=== PATIENT | female | born 1935 | race Caucasian/White ===

== ENCOUNTER → 2016-10-22 | Outpatient (CLI) | payer MEDICARE, OTHER ==
[2016-10-22 07:10] LABS: CALCIUM LEVEL 8.7 MG/DL (8.8-10.2); CREATININE FOR GFR 1.24 MG/DL (0.55-1.02); GLOMERULAR FILTRATION RATE 44.4 (>39); POTASSIUM SERUM 4.3 MEQ/L (3.5-5.1)
--- NOTE | 2016-10-22 08:54 | ECGEPIP ---
Stationary ECG Study [facility] Test Date: 2016-10-22 Pat Name: BANDAR WEBER Department: Room: - Gender: F [employer] Lab Technician: ANGELI : [id number] Requested By: CURT Byrd Order Number: [id number] Reading MD: Shari Payton Measurements Intervals [place] Rate: 73 P: 48 OR: 110 QRS: 72 QRSD: 90 T: 55 QT: 380 QTc: 420 Interpretive Statements SINUS RHYTHM WITH SHORT OR INTERVAL U WAVES NOTED MINIMAL ST DEPRESSION NO PRIOR Electronically Signed On 10-22-2016 8:54:19 EST by Shari Payton
== END ==
LOC: M LAB 06:17
PROVIDERS: ATTEND Ophthalmology
DX: H25.11 Age-related nuclear cataract, right eye (principal); Z01.818 Encounter for other preprocedural examination

== ENCOUNTER 2016-11-07 09:30 | Day surgery (SDC) | payer MEDICARE, OTHER ==
--- NOTE | 2016-11-05 06:04 | CR ---
PREOPERATIVE EVALUATION CONSULTATION DATE OF CONSULTATION: 10/23/2016 REQUESTING SURGEON: Dr. Jeff Quevedo CONSULTING PHYSICIAN: Dr. Dileep Barragan PLANNED SURGERY: Right cataract extraction. HISTORY OF PRESENT ILLNESS: A very pleasant 81-year-old patient presents today for preoperative evaluation consultation. Patient is looking forward to right cataract surgery to be completed on 11/07/2016, at [facility]. Patient and I discussed preoperative risks. She notes she exerts herself over three METS on a regular basis, including walking up the stairs without issues. She denies any significant cardiac symptoms. No chest pain, shortness of breath. She had no difficulties with anesthesia during the left cataract extraction. She denies any snoring or other significant perioperative risks. Other medical issues include osteoporosis with vitamin D deficiency, renal calculi for which she is on Bactrim. I have intermittent elevations of her blood pressure which have proven to be associated with anxiety and on recheck have been controlled. She does see her urologist regarding her renal calculi. Although it is noted that there was no PATs, the patient did have platelet function and evaluation which appears normal. BMP was also completed and noted a creatinine of 1.24 giving her a GFR of 44. Other electrolytes were generally appropriate. Patient as noted has been hesitant to have any other testing, but does understand the risks of this. Presently, she has no new symptoms or issues of concern. PAST MEDICAL HISTORY: 1. Osteoporosis, status post treatment with Fosamax for many years. 2. Renal calculi, seeing Dr. Riley through urology and has been maintained on Bactrim. 3. Fasting glucose intolerance. 4. Vitamin D deficiency. 5. Chronic kidney disease stage 3. 6. Hyperlipidemia -- has declined statins a number of times. PAST SURGICAL HISTORY: 1. Left cataract extraction, Dr. García. 2. Colonoscopies with Dr. Riley and Dr. Patton. 3. Lithotripsy times two in [place] with Dr. Riley for renal calculi. 4. Breast biopsies in the 1960s, benign. ALLERGIES: SIMVASTATIN is listed as an allergy, but likely due to myalgias only. MEDICATIONS: - Drisdol 50,000 units taken three out of four weeks a month - Bactrim single-strength taken daily - Refresh eye drops as needed FAMILY HISTORY: Father in his 80s of unknown cause. Mother of coronary artery disease; she was a heavy smoker and had respiratory issues. She had a brother who is alive in his early 80s had coronary artery bypass graft (CABG). A second brother in his late 70s had a kidney removed. Had a sister who had a gynecological cancer and is in her early 70s. She had a son who of complications of gastrointestinal (GI) issues; his name was Larry. SOCIAL HISTORY: The patient lives alone. She is . Her only son Larry in 2012 at the age of 47. She is a retired contract administrative assistant from [employer] She is a former smoker, smoked socially for about 10 years quit in 1969. She has an occasional alcohol beverage only. REVIEW OF SYSTEMS: As per history of present illness (HPI), otherwise, 10-system review is negative. PHYSICAL EXAMINATION: VITAL SIGNS: Initial blood pressure 152/74, recheck 135/70, pulse 84, respiratory rate 16, weight of 108 pounds, height of 5 feet 4 inches, body mass index (BMI) of 18.5. Patient appears at baseline health, well-developed, nontoxic, alert, and oriented times three, somewhat anxious about the surgery, but otherwise well-composed, well-spoken. HEENT: Pupils equal, round, and react to light and accommodation. Extraocular motions appear intact. No lesions to lids or conjunctiva. Oral cavity and oropharynx are benign. Nares are benign as is external ear. NECK: Supple, no lymphadenopathy or thyromegaly. HEART: Regular rate and rhythm, S1, S2, no murmurs appreciated. LUNGS: Clear to auscultation bilaterally. No rales, rhonchi, or wheezes. ABDOMEN: Soft, nontender, nondistended. EXTREMITIES: No cyanosis, clubbing, or edema. NEUROLOGIC: Nonfocal. Her memory is intact. She has appropriate attention and speech. Strength in all four limbs is symmetrical. ASSESSMENT AND PLAN: 1. Preoperative evaluation consultation. At this point in time, the patient appears optimized for surgical intervention. Although at the time of seeing the patient, preoperative evaluation testing was not available. Subsequently, platelet function testing was checked and appears to be normal. Her BMP--shows some increase in her creatinine; however, she is on Bactrim, which can artificially raise this. EKG showed sinus rhythm with minor changes, could just be short IN interval. UA is question of SBT changes but no significant abnormalities. With the patient's preoperative testing, and no clinical predictors of significant increased risk for cardiovascular events, the patient is optimized for surgical intervention. If she does have any perioperative issues, please feel free to call me on my cell and I would be happy to address those. However, risk is low to intermediate for a relatively low risk procedure. 2. Right eye cataract. Patient looks forward to improved vision. 3. History of renal calculi--appears to be doing well following with Dr. Riley who is on Bactrim due to this, but is not having any symptoms. She is monitored. 4. Anxiety. Has had significant issues, generally stable. Looks forward to surgical intervention. 5. Vitamin D deficiency. Patient and I discussed the importance of taking her Drisdol regularly. We will followup. 6. Osteoporosis. Patient has significant osteoporosis based on July 2016 DEXA scan. She is not interested in further treatment having been on Fosamax. She does understand the risks. 7. Chronic kidney disease stage 3. Again, this is being monitored. Will have her avoid nephrotoxins. She understands this and follows up with Dr. Riley. 8. Ongoing care. I am going to see the patient as scheduled with labs. However, if she has any preoperative issues, she will let me know. Her sister, Terrie Hernandez, will be bringing the patient to her appointment and caring for her postoperatively. If there are new issues or concerns sooner, they will let me know.
[~2016-11-07 09:30] MED LIST: ACETAMINOPHEN 325 MG TAB PO PRN; ACETYLCHOLINE OPHTH SOLN 1% 2ML As Ordered ONE; BALANCED SALT IRRIGATION SOLUTION 500ML BAG (FOR OR EYE MACHINE) As Ordered ONE; CEFUROXIME 1MG/0.1ML INTRACAMERAL INJ As Ordered ONE; HEALON DUET (HEALON 10MG/ML 0.55ML & HEALON ENDOCOAT 30MG/ML 0.85ML) As Ordered ONE; LIDOCAINE 0.75%/EPINEPHRINE 0.025% IN BSS 1ML SYR INTRACAMERAL (OR ONLY) As Ordered ONE; OFLOXACIN 0.3 % (OCUFLOX) OPTH SOL 5ML OD ONE; PHENYLEPHRINE 2.5% OPHTH SOL 2ML OD ONE; POVIDONE-IODINE 5% OPHTH PREP SOL 30ML As Ordered ONE; PROPARACAINE 0.5% OPHTH SOL 15ML OD ONE; TOBRADEX OPHTH OINT 3.5 GM As Ordered ONE; TROPICAMIDE 1% OPHTH SOLN 2 ML OD ONE
[2016-11-07] MEDS ORDERED: OFLOXACIN 0.3 % (OCUFLOX) OPTH SOL 5ML As Ordered ONE (10:03)
[2016-11-07] MEDS ORDERED: PHENYLEPHRINE 2.5% OPHTH SOL 2ML As Ordered ONE (10:03)
[2016-11-07] MEDS ORDERED: CYCLOPENTOLATE 2% OPHTH SOLN As Ordered ONE (10:03)
[2016-11-07] MEDS ORDERED: TROPICAMIDE 1% OPHTH SOLN 2 ML As Ordered ONE (10:03)
[2016-11-07] MEDS ORDERED: DRIS50002 PO (10:25)
[2016-11-07] MEDS ORDERED: BACT400T PO (10:25)
[2016-11-07] MEDS ORDERED: MIDAZOLAM INJ 2 MG/2 ML VIAL (J2250) As Ordered ONE (10:34)
[2016-11-07] MEDS ORDERED: TRIMETHOBENZAMIDE 300 MG CAP PO PRN (12:00)
[2016-11-07 12:15] VITALS: BP 149/70
--- NOTE | 2016-11-07 17:45 | RO ---
DATE OF PROCEDURE: 11/07/2016 PREOPERATIVE DIAGNOSIS: Visually significant nuclear sclerotic cataract right eye. POSTOPERATIVE DIAGNOSIS: Visually significant nuclear sclerotic cataract right eye. PROCEDURE: Cataract extraction with use of phacoemulsification and placement of intraocular lens Lion [id number] 22.5 diopters, right eye. SURGEON: Jeff Quevedo DO RETAIL SALES ADVISOR: ANESTHESIA: Local with monitored anesthesia care (MAC). COMPLICATIONS: None. POSTOPERATIVE CONDITION: Stable. INDICATION FOR SURGERY: Blurred vision right eye affecting patient's activities of daily living. DESCRIPTION OF PROCEDURE: The patient was seen in the preoperative area and properly identified. The correct operative eye was identified and marked. Attention was turned to that eye. The patient received topical antibiotics in the preoperative area. The patient then received topical dilating drops consisting of tropicamide and phenylephrine. The patient was then transferred to the operating room. The correct side was reidentified. The patient received topical anesthetics and antibiotics on the surface of the eye. The eye was prepped and draped in a sterile fashion. The upper and lower eyelids were isolated with Tegaderm tape, and the lids were held open with an adjustable speculum. Using a sideport blade, a paracentesis incision was made. Intraocular preservative-free lidocaine was then injected into the anterior chamber. Viscoelastic was then injected into the anterior chamber through the paracentesis. Using a 2.65 mm sharp-tipped keratome, the anterior chamber was entered via a temporal clear corneal incision. A continuous curvilinear capsulorrhexis was created with the aid of a 26-gauge cystotome and Utrata forceps. Hydrodissection was performed with balanced salt solution (BSS) on a blunt cannula until the nucleus was freely mobile. The crystalline lens was phacoemulsified and aspirated. Additional cohesive viscoelastic was placed into the capsular bag to deepen it. An Lion [id number] 22.5 diopter lens was placed into the capsular bag and confirmed by visualizing the continuous curvilinear capsulorrhexis. Additional irrigation and aspiration was used to remove cortical material and remaining viscoelastic. The clear corneal incision was hydrated with BSS on a blunt cannula. The lens was well positioned. The incisions were then tested for leaks and found to be negative. The eye was then palpated for appropriate pressure and adjusted accordingly with BSS. Cefuroxime, 0.5cc was injected into the anterior chamber. The eyelid speculum was then carefully removed. Tobradex ointment was placed in the eye. An eye patch and shield were then secured over the eye. The patient tolerated the procedure well and was discharged to the recovery unit in a stable condition. DREA
== END 2016-11-07 12:15 | disposition home or self-care (01) ==
LOC: M SDC 09:30
PROVIDERS: ATTEND Ophthalmology
DX: H25.21 Age-related cataract, morgagnian type, right eye (principal); M81.0 Age-related osteoporosis without current pathological fracture; N20.0 Calculus of kidney; E78.5 Hyperlipidemia, unspecified; F41.9 Anxiety disorder, unspecified; E55.9 Vitamin D deficiency, unspecified; N18.3 Chronic kidney disease, stage 3 (moderate); Z88.8 Allergy status to other drugs, medicaments and biological substances; Z79.899 Other long term (current) drug therapy
CPT/HCPCS: 66984; J2250; V2632

== ENCOUNTER → 2017-05-29 | Outpatient (CLI) | payer MEDICARE ==
[~2017-05-29] MED LIST changes: -ACETAMINOPHEN 325 MG TAB PO PRN; -ACETYLCHOLINE OPHTH SOLN 1% 2ML As Ordered ONE; +BACT400T PO; -BALANCED SALT IRRIGATION SOLUTION 500ML BAG (FOR OR EYE MACHINE) As Ordered ONE; -CEFUROXIME 1MG/0.1ML INTRACAMERAL INJ As Ordered ONE; +DRIS50002 PO; -HEALON DUET (HEALON 10MG/ML 0.55ML & HEALON ENDOCOAT 30MG/ML 0.85ML) As Ordered ONE; -LIDOCAINE 0.75%/EPINEPHRINE 0.025% IN BSS 1ML SYR INTRACAMERAL (OR ONLY) As Ordered ONE; -OFLOXACIN 0.3 % (OCUFLOX) OPTH SOL 5ML OD ONE; -PHENYLEPHRINE 2.5% OPHTH SOL 2ML OD ONE; -POVIDONE-IODINE 5% OPHTH PREP SOL 30ML As Ordered ONE; -PROPARACAINE 0.5% OPHTH SOL 15ML OD ONE; -TOBRADEX OPHTH OINT 3.5 GM As Ordered ONE; -TROPICAMIDE 1% OPHTH SOLN 2 ML OD ONE
[2017-05-29 12:31] LABS: FOLATE 9.2 NG/ML (>5.4)
[2017-05-29 12:41] LABS: FREE T4 1.16 NG/DL (0.76-1.46)
== END ==
LOC: M LAB 10:34
PROVIDERS: ATTEND Psychiatry & Neurology Neurology
DX: G31.84 Mild cognitive impairment of uncertain or unknown etiology (principal); G30.1 Alzheimer's disease with late onset; E03.9 Hypothyroidism, unspecified

== ENCOUNTER → 2018-08-05 | Outpatient (REF) | payer MEDICARE ==
[~2018-08-05] MED LIST changes: -DRIS50002 PO; +DRIS50003 PO
== END ==
LOC: M LAB REF 12:34
PROVIDERS: ATTEND Nurse Practitioner Family
DX: N39.0 Urinary tract infection, site not specified (principal)

== ENCOUNTER 2018-09-24 17:05 | Emergency (ER) | payer MEDICARE ==
[2018-09-24] MEDS ORDERED: CITA10TA5 OR (17:26)
[2018-09-24] MEDS ORDERED: OLAN2.5T OR (17:26)
[2018-09-24] MEDS ORDERED: MEMA1TAB OR (17:26)
[2018-09-24 20:10] VITALS: BP 165/77
== END 2018-09-24 20:20 | disposition home or self-care (01) ==
LOC: M ED 17:05
DX: F03.90 Unspecified dementia, unspecified severity, without behavioral disturbance, psychotic disturbance, mood disturbance, and anxiety (principal); E78.5 Hyperlipidemia, unspecified; Z87.442 Personal history of urinary calculi; Z79.899 Other long term (current) drug therapy; Z88.8 Allergy status to other drugs, medicaments and biological substances